=== PATIENT | male | born 1945 | race Caucasian/White ===

== ENCOUNTER 2018-03-08 01:40 | Emergency (ER) | payer MEDICARE, BC ==
[2018-03-08] MEDS ORDERED: ONDANSETRON 4 MG TAB.RAPDIS PO ONE (02:56)
--- NOTE | 2018-03-08 02:58 | ER Document Report ---
ED General - General Chief Complaint: Groin Pain Stated Complaint: GROIN PAIN Time Seen by Provider: 03/08/18 02:05 Notes: Patient is a 72-year-old male with a long-standing history of right inguinal hernia who presents with increased pain to this area. The patient reports a dull, throbbing, intermittent pain to the area started several hours ago. He reports that this started after he had been lifting boxes throughout the day today. He states that the area has caused pain similar to this in the past although not to this degree of intensity. He denies any vomiting. He states that the bulge does go away when he lies flat or presses on the area. He has seen a surgeon in the past regarding this area although he was informed that surgery would not be indicated unless it continued to cause him problems. He denies any additional concerns. TRAVEL OUTSIDE OF THE [place] IN LAST 30 DAYS: No - Related Data Allergies/Adverse Reactions: No Known Allergies Allergy (Verified 02/05/14 08:17) Past Medical History - General Information source: Patient - Social History Smoking Status: Never Smoker Chew tobacco use (# tins/day): No Frequency of alcohol use: None Drug Abuse: None Lives with: Spouse/Significant other Family History: Reviewed & Not Pertinent Patient has suicidal ideation: No Patient has homicidal ideation: No - Past Medical History Cardiac Medical History: Reports: Hx Hypertension Denies: Hx Coronary Artery Disease, Hx Heart Attack Pulmonary Medical History: Denies: Hx Asthma, Hx Bronchitis, Hx COPD, Hx Pneumonia Neurological Medical History: Denies: Hx Cerebrovascular Accident, Hx Seizures Renal/ Medical History: Denies: Hx Peritoneal Dialysis GI Medical History: Denies: Hx Hepatitis, Hx Hiatal Hernia, Hx Ulcer Musculoskeletal Medical History: Denies Hx Arthritis Infectious Medical History: Denies: Hx Hepatitis Past Surgical History: Denies: Hx Open Heart Surgery, Hx Pacemaker - Immunizations Hx Diphtheria, Pertussis, Tetanus Vaccination: Yes Review of Systems - Review of Systems Notes: Constitutional: Negative for fever. HENT: Negative for sore throat. Eyes: Negative for visual changes. Cardiovascular: Negative for chest pain. Respiratory: Negative for shortness of breath. Gastrointestinal: Positive for pain to a right inguinal hernia Genitourinary: Negative for dysuria. Musculoskeletal: Negative for back pain. Skin: Negative for rash. Neurological: Negative for headaches, weakness or numbness. 10 point ROS negative except as marked above and in HPI. Physical Exam - Vital signs Vitals: Temp Pulse Resp BP Pulse Ox 97.5 F 70 17 148/86 H 96 03/08/18 01:48 03/08/18 01:48 03/08/18 01:48 03/08/18 01:48 03/08/18 01:48 Notes: PHYSICAL EXAMINATION: GENERAL: Well-appearing, well-nourished and in no acute distress. HEAD: Atraumatic, normocephalic. EYES: Pupils equal round and reactive to light, extraocular movements intact, sclera anicteric, conjunctiva are normal. ENT: nares patent, oropharynx clear without exudates. Moist mucous membranes. NECK: Normal range of motion, supple without lymphadenopathy LUNGS: Breath sounds clear to auscultation bilaterally and equal. No wheezes rales or rhonchi. HEART: Regular rate and rhythm without murmurs ABDOMEN: Soft, nontender, normoactive bowel sounds. No guarding, no rebound. No masses appreciated. There is a small, right inguinal hernia that is easily reduced when the patient lies flat or gentle pressure is applied to the area. No herniation into the scrotum. Area is extremely soft, compressible, no firmness or difficulty with reducing. : No testicular pain or swelling. Positive cremasteric reflex bilaterally. Normal testicular lie. EXTREMITIES: Normal range of motion, no pitting or edema. No cyanosis. NEUROLOGICAL: No focal neurological deficits. Moves all extremities spontaneously and on command. PSYCH: Normal mood, normal affect. SKIN: Warm, Dry, normal turgor, no rashes or lesions noted. Course - Re-evaluation Re-evalutation: 03/08/18 02:59 Patient presents with an uncomplicated right inguinal hernia without evidence of incarceration or strangulation. No indication for labs or imaging. The patient appears very well. The hernia reduces when he lies flat. No significant tenderness on palpation of the area. No indication for emergent surgical intervention. I have emphasized with the patient that he should follow -up with surgery as an outpatient for consideration of elective operative management if this continues to cause problems. I have also advised against ongoing heavy lifting as this appears to have exacerbated his condition today. At this time will discharge with return precautions and follow-up recommendations. Verbal discharge instructions given a the bedside and opportunity for questions given. Medication warnings reviewed. Patient is in agreement with this plan and has verbalized understanding of return precautions and the need for primary care follow-up in the next 24-72 hours. - Vital Signs Vital signs: Temp Pulse Resp BP Pulse Ox 97.5 F 70 17 148/86 H 96 03/08/18 01:48 03/08/18 01:48 03/08/18 01:48 03/08/18 01:48 03/08/18 01:48 Discharge - Discharge Clinical Impression: Right inguinal hernia Condition: Good Disposition: HOME, SELF-CARE Additional Instructions: You were seen today for a right inguinal hernia. The hernia reduces easily and does not require immediate surgery. Please follow-up with the general surgeon listed in the paperwork if you continue to have discomfort to this area. You need to return to the emergency department immediately if you have persistent pain to the area, the hernia becomes firm, does not go away when you lie flat or gently press on the area, you develop vomiting, or you have any other symptoms that are worrisome to you. Referrals: JUANIS RASMUSSEN MD [Primary Care Provider] - Follow up as needed MERVIN BRICENO MD [ACTIVE STAFF] - Follow up as needed
[2018-03-08 03:30] VITALS: BP 144/91
== END 2018-03-08 03:24 | disposition home or self-care (01) ==
LOC: ER 01:40
DX: K40.90 Unilateral inguinal hernia, without obstruction or gangrene, not specified as recurrent (principal); I10 Essential (primary) hypertension
CPT/HCPCS: 99283; A9270; S0119